=== PATIENT | male | born 1950 | race Caucasian/White ===

== ENCOUNTER 2021-08-01 15:06 | Inpatient (IN) ==
[2021-08-01] MEDS ORDERED: Nitroglycerin 0.4 MG TAB.SUBL SL PRN (15:24)
[2021-08-01] MEDS ORDERED: D5% in Water 1,000 ML IVC PRN (15:41)
[2021-08-01] MEDS ORDERED: Dextrose Gel 15 GM/37.5 ML TUBE PO PRN ×2 (15:41)
[2021-08-01] MEDS ORDERED: *HR* Dextrose 50 % in Water (Syg) 50 ML SYRINGE IVP PRN (15:41)
[2021-08-01] MEDS ORDERED: Insulin DETEMIR 100 UNIT/ML X5UNITS SUBQ SCH (21:00)
[2021-08-01] MEDS ORDERED: Bumetanide 1 MG TABLET PO SCH (21:00)
[2021-08-01] MEDS ORDERED: Insulin DETEMIR 100 UNIT/ML per UNIT SUBQ ONE (21:15)
[2021-08-01] MEDS: Insulin LISPRO 300 UNITS/3 ML VIAL SUBQ SCH (23:50)
[2021-08-01] MEDS: metOLazone 2.5 MG TABLET PO SCH (23:50)
[2021-08-02] MEDS: Insulin DETEMIR 100 UNIT/ML X5UNITS SUBQ SCH ×3 (00:14→20:47)
[2021-08-02] MEDS: Doxycycline 100 MG CAPSULE PO SCH ×3 (00:24→20:47)
[2021-08-02] MEDS: Ranolazine 500 MG TAB.ER.12H PO SCH ×3 (00:26→20:47)
[2021-08-02] MEDS: Insulin LISPRO 300 UNITS/3 ML VIAL SUBQ SCH ×5 (00:27→20:53)
[2021-08-02] MEDS: Sacubitril/Valsartan 97/103 MG 1 TAB TABLET PO SCH ×3 (00:28→20:47)
[2021-08-02 05:33] LABS: Basophils # 0.1 K/mcL (0.0-0.2); Eosinophils # 0.2 K/mcL (0.0-0.6); Eosinophils % 2.3 %; Hematocrit 32.5 % (37.5-50.1); Hemoglobin 10.9 g/dL (12.9-16.9); Immature Granulocytes % 0.7 % (0-4); Lymphocytes # 1.3 K/mcL (0.6-4.6); Lymphocytes % 14.1 %; Mean Corpuscular HGB Conc 33.5 g/dL (31.6-35.5); Mean Corpuscular Hemoglobin 34.1 pg (28.0-33.3); Mean Corpuscular Volume 101.6 fL (83.0-100.0); Mean Platelet Volume 10.6 fL (9.4-12.4); Monocytes # 0.8 K/mcL (0.0-1.3); Monocytes % 8.7 %; Neutrophils # 6.7 K/mcL (1.6-8.9); Platelet Count 243 K/mcL (140-400); Red Cell Distribution Width 13.1 % (11.5-14.5); Segmented Neutrophils % 73.2 %; White Blood Count 9.2 K/mcL (4.3-11.1)
[2021-08-02 05:49] LABS: BUN/Creatinine Ratio 13 (6-26); Blood Urea Nitrogen 15 mg/dL (8-23); Calcium 8.6 mg/dL (8.6-10.3); Carbon Dioxide 23 mEq/L (23-29); Chloride 107 mEq/L (98-107); Glucose 163 mg/dL (70-105); Osmolality,Calculated 288 (280-300); Potassium 3.4 mEq/L (3.5-5.1); Sodium 137 mEq/L (136-145); eGFR For African Americans > 60 (> 60); eGFR For Non-African Americans > 60 (> 60)
[2021-08-02] MEDS: Budesonide/Formoterol 80/4.5 1 PUFF INH IH SCH (07:23)
[2021-08-02] MEDS: Metoprolol XL (24 HR) Succ 25 MG TAB.ER.24H PO SCH (08:48)
[2021-08-02] MEDS: *HR* Amiodarone 200 MG TABLET PO SCH (08:48)
[2021-08-02] MEDS: Multivit/Ca/Min/Fe/FA 1 TAB TABLET PO SCH (08:49)
[2021-08-02] MEDS: Bumetanide 1 MG TABLET PO SCH ×2 (08:49→17:55)
[2021-08-02] MEDS ORDERED: hydrOXYzine pamoate 25 MG CAPSULE PO ONE (21:08)
[2021-08-03 06:39] LABS: Hematocrit 34.1 % (37.5-50.1); Hemoglobin 11.5 g/dL (12.9-16.9); Mean Corpuscular HGB Conc 33.7 g/dL (31.6-35.5); Mean Corpuscular Volume 100.9 fL (83.0-100.0); Mean Platelet Volume 10.5 fL (9.4-12.4); Platelet Count 264 K/mcL (140-400); Red Blood Count 3.38 M/mcL (4.19-5.50); Red Cell Distribution Width 13.2 % (11.5-14.5); White Blood Count 8.3 K/mcL (4.3-11.1)
[2021-08-03 07:05] LABS: BUN/Creatinine Ratio 13 (6-26); Blood Urea Nitrogen 16 mg/dL (8-23); Carbon Dioxide 22 mEq/L (23-29); Chloride 107 mEq/L (98-107); Glucose 95 mg/dL (70-105); Magnesium 1.7 mg/dL (1.6-2.6); Osmolality,Calculated 291 (280-300); Potassium 3.2 mEq/L (3.5-5.1); Sodium 140 mEq/L (136-145); eGFR For African Americans > 60 (> 60); eGFR For Non-African Americans 57 (> 60)
[2021-08-03] MEDS: Budesonide/Formoterol 80/4.5 1 PUFF INH IH SCH (07:40)
[2021-08-03] MEDS: Bumetanide 1 MG TABLET PO SCH ×2 (07:59→17:08)
[2021-08-03] MEDS: Ranolazine 500 MG TAB.ER.12H PO SCH ×2 (07:59→20:51)
[2021-08-03] MEDS: Metoprolol XL (24 HR) Succ 25 MG TAB.ER.24H PO SCH (07:59)
[2021-08-03] MEDS: Multivit/Ca/Min/Fe/FA 1 TAB TABLET PO SCH (07:59)
[2021-08-03] MEDS: Doxycycline 100 MG CAPSULE PO SCH ×2 (07:59→20:51)
[2021-08-03] MEDS: *HR* Amiodarone 200 MG TABLET PO SCH (07:59)
[2021-08-03] MEDS: Sacubitril/Valsartan 97/103 MG 1 TAB TABLET PO SCH ×2 (08:00→20:51)
[2021-08-03] MEDS: Insulin DETEMIR 100 UNIT/ML X5UNITS SUBQ SCH ×2 (08:00→20:54)
[2021-08-03] MEDS: Insulin LISPRO 300 UNITS/3 ML VIAL SUBQ SCH ×4 (09:24→20:54)
[2021-08-03] MEDS: metOLazone 2.5 MG TABLET PO SCH (17:08)
[2021-08-03] MEDS: *HR* OxyCODONE Immed Rel 5 MG TABLET PO PRN ×2 (17:11→22:35)
[2021-08-04] MEDS: Insulin LISPRO 300 UNITS/3 ML VIAL SUBQ SCH ×5 (08:29→21:16)
[2021-08-04] MEDS: Bumetanide 1 MG TABLET PO SCH (08:45)
[2021-08-04] MEDS: *HR* Amiodarone 200 MG TABLET PO SCH (08:45)
[2021-08-04] MEDS: Multivit/Ca/Min/Fe/FA 1 TAB TABLET PO SCH (08:45)
[2021-08-04] MEDS: Sacubitril/Valsartan 97/103 MG 1 TAB TABLET PO SCH ×2 (08:45→21:15)
[2021-08-04] MEDS: Doxycycline 100 MG CAPSULE PO SCH ×2 (08:45→21:16)
[2021-08-04] MEDS: Ranolazine 500 MG TAB.ER.12H PO SCH ×2 (08:45→21:16)
[2021-08-04] MEDS: Metoprolol XL (24 HR) Succ 25 MG TAB.ER.24H PO SCH (08:45)
[2021-08-04] MEDS: *HR* OxyCODONE Immed Rel 5 MG TABLET PO PRN ×2 (08:55→21:16)
[2021-08-04] MEDS: Insulin DETEMIR 100 UNIT/ML X5UNITS SUBQ SCH ×2 (08:55→21:17)
[2021-08-04] MEDS: Budesonide/Formoterol 80/4.5 1 PUFF INH IH SCH ×2 (09:49→11:10)
[2021-08-05] MEDS: Budesonide/Formoterol 80/4.5 1 PUFF INH IH SCH (07:31)
[2021-08-05] MEDS: Insulin LISPRO 300 UNITS/3 ML VIAL SUBQ SCH ×4 (07:49→22:41)
[2021-08-05] MEDS: Metoprolol XL (24 HR) Succ 25 MG TAB.ER.24H PO SCH (09:12)
[2021-08-05] MEDS: Sacubitril/Valsartan 97/103 MG 1 TAB TABLET PO SCH ×2 (09:12→22:53)
[2021-08-05] MEDS: Ranolazine 500 MG TAB.ER.12H PO SCH ×2 (09:12→22:54)
[2021-08-05] MEDS: Doxycycline 100 MG CAPSULE PO SCH ×2 (09:13→22:52)
[2021-08-05] MEDS: *HR* Amiodarone 200 MG TABLET PO SCH (09:13)
[2021-08-05] MEDS: Multivit/Ca/Min/Fe/FA 1 TAB TABLET PO SCH (09:13)
[2021-08-05] MEDS: Bumetanide 1 MG TABLET PO SCH (09:13)
[2021-08-05] MEDS: Insulin DETEMIR 100 UNIT/ML X5UNITS SUBQ SCH ×2 (09:24→22:57)
[2021-08-05] MEDS: metOLazone 2.5 MG TABLET PO SCH (16:20)
[2021-08-05] MEDS: Sennosides 8.6 MG TABLET PO SCH (22:51)
[2021-08-05] MEDS: *HR* OxyCODONE Immed Rel 5 MG TABLET PO PRN (22:53)
[2021-08-06 05:13] LABS: Hematocrit 34.6 % (37.5-50.1); Hemoglobin 11.7 g/dL (12.9-16.9); Mean Corpuscular HGB Conc 33.8 g/dL (31.6-35.5); Mean Corpuscular Hemoglobin 33.6 pg (28.0-33.3); Mean Corpuscular Volume 99.4 fL (83.0-100.0); Mean Platelet Volume 10.4 fL (9.4-12.4); Platelet Count 267 K/mcL (140-400); Red Blood Count 3.48 M/mcL (4.19-5.50); Red Cell Distribution Width 13.1 % (11.5-14.5)
[2021-08-06 05:27] LABS: Alanine Aminotransferase 26 Units/L (7-52); Alkaline Phosphatase 53 Units/L (34-104); Aspartate Amino Transferase 23 Units/L (13-39); BUN/Creatinine Ratio 14 (6-26); Bilirubin,Total 0.6 mg/dL (0.3-1.0); Blood Urea Nitrogen 18 mg/dL (8-23); Calcium 9.1 mg/dL (8.6-10.3); Carbon Dioxide 27 mEq/L (23-29); Chloride 102 mEq/L (98-107); Globulin 3.1 g/dL (2.4-3.5); Glucose 131 mg/dL (70-105); Magnesium 1.5 mg/dL (1.6-2.6); Osmolality,Calculated 286 (280-300); Potassium 3.5 mEq/L (3.5-5.1); Sodium 136 mEq/L (136-145); Total Protein 6.1 g/dL (6.4-8.9); eGFR For African Americans > 60 (> 60); eGFR For Non-African Americans 56 (> 60)
[2021-08-06] MEDS: Budesonide/Formoterol 80/4.5 1 PUFF INH IH SCH (06:33)
[2021-08-06] MEDS: Insulin LISPRO 300 UNITS/3 ML VIAL SUBQ SCH ×4 (07:58→22:56)
[2021-08-06] MEDS: Insulin DETEMIR 100 UNIT/ML X5UNITS SUBQ SCH ×2 (08:03→23:11)
[2021-08-06] MEDS: Multivit/Ca/Min/Fe/FA 1 TAB TABLET PO SCH (08:04)
[2021-08-06] MEDS: Sennosides 8.6 MG TABLET PO SCH ×2 (08:04→23:01)
[2021-08-06] MEDS: *HR* Amiodarone 200 MG TABLET PO SCH (08:04)
[2021-08-06] MEDS: Bumetanide 1 MG TABLET PO SCH (08:04)
[2021-08-06] MEDS: Metoprolol XL (24 HR) Succ 25 MG TAB.ER.24H PO SCH (08:04)
[2021-08-06] MEDS: Sacubitril/Valsartan 97/103 MG 1 TAB TABLET PO SCH ×2 (08:04→23:09)
[2021-08-06] MEDS: Doxycycline 100 MG CAPSULE PO SCH (08:04)
[2021-08-06] MEDS: Ranolazine 500 MG TAB.ER.12H PO SCH ×2 (09:28→11:36)
[2021-08-06] MEDS: Magnesium Oxide 400 MG TABLET PO SCH (23:07)
[2021-08-06] MEDS: *HR* OxyCODONE Immed Rel 5 MG TABLET PO PRN (23:09)
[2021-08-07] MEDS: Ranolazine 500 MG TAB.ER.12H PO SCH ×3 (00:52→21:50)
[2021-08-07] MEDS: *HR* OxyCODONE Immed Rel 5 MG TABLET PO PRN ×2 (03:44→21:51)
[2021-08-07 05:24] LABS: BUN/Creatinine Ratio 16 (6-26); Blood Urea Nitrogen 22 mg/dL (8-23); Calcium 9.1 mg/dL (8.6-10.3); Carbon Dioxide 28 mEq/L (23-29); Chloride 103 mEq/L (98-107); Glucose 157 mg/dL (70-105); Magnesium 1.7 mg/dL (1.6-2.6); Osmolality,Calculated 293 (280-300); Potassium 3.4 mEq/L (3.5-5.1); Sodium 138 mEq/L (136-145); eGFR For African Americans > 60 (> 60); eGFR For Non-African Americans 53 (> 60)
[2021-08-07] MEDS: Budesonide/Formoterol 80/4.5 1 PUFF INH IH SCH (06:44)
[2021-08-07] MEDS: Doxycycline 100 MG CAPSULE PO SCH (07:50)
[2021-08-07] MEDS: Insulin LISPRO 300 UNITS/3 ML VIAL SUBQ SCH ×4 (07:59→21:47)
[2021-08-07] MEDS: Bumetanide 1 MG TABLET PO SCH (09:05)
[2021-08-07] MEDS: Sacubitril/Valsartan 97/103 MG 1 TAB TABLET PO SCH ×2 (09:06→21:51)
[2021-08-07] MEDS: metOLazone 2.5 MG TABLET PO SCH (09:06)
[2021-08-07] MEDS: *HR* Amiodarone 200 MG TABLET PO SCH ×2 (09:07→12:23)
[2021-08-07] MEDS: Metoprolol XL (24 HR) Succ 25 MG TAB.ER.24H PO SCH ×2 (09:07→12:23)
[2021-08-07] MEDS: Sennosides 8.6 MG TABLET PO SCH ×2 (09:48→21:51)
[2021-08-07] MEDS: Multivit/Ca/Min/Fe/FA 1 TAB TABLET PO SCH (09:48)
[2021-08-07] MEDS: Insulin DETEMIR 100 UNIT/ML X5UNITS SUBQ SCH ×2 (09:48→21:51)
[2021-08-07] MEDS: Magnesium Oxide 400 MG TABLET PO SCH ×2 (09:48→21:50)
[2021-08-07] MEDS: Melatonin 3 MG TABLET PO PRN (21:51)
[2021-08-08 04:59] LABS: Hematocrit 35.7 % (37.5-50.1); Hemoglobin 11.8 g/dL (12.9-16.9); Mean Corpuscular HGB Conc 33.1 g/dL (31.6-35.5); Mean Corpuscular Hemoglobin 33.3 pg (28.0-33.3); Mean Corpuscular Volume 100.8 fL (83.0-100.0); Mean Platelet Volume 10.4 fL (9.4-12.4); Platelet Count 268 K/mcL (140-400); Red Blood Count 3.54 M/mcL (4.19-5.50); Red Cell Distribution Width 12.9 % (11.5-14.5); White Blood Count 6.9 K/mcL (4.3-11.1)
[2021-08-08 05:14] LABS: Alanine Aminotransferase 32 Units/L (7-52); Albumin 3.1 g/dL (3.5-5.7); Albumin/Globulin Ratio 1.1 (1.1-2.2); Alkaline Phosphatase 55 Units/L (34-104); Aspartate Amino Transferase 24 Units/L (13-39); BUN/Creatinine Ratio 17 (6-26); Bilirubin,Total 0.5 mg/dL (0.3-1.0); Blood Urea Nitrogen 23 mg/dL (8-23); Calcium 9.1 mg/dL (8.6-10.3); Carbon Dioxide 26 mEq/L (23-29); Chloride 105 mEq/L (98-107); Globulin 2.9 g/dL (2.4-3.5); Glucose 143 mg/dL (70-105); Magnesium 1.7 mg/dL (1.6-2.6); Osmolality,Calculated 290 (280-300); Potassium 3.8 mEq/L (3.5-5.1); Sodium 137 mEq/L (136-145); eGFR For African Americans > 60 (> 60); eGFR For Non-African Americans 51 (> 60)
[2021-08-08] MEDS: Insulin LISPRO 300 UNITS/3 ML VIAL SUBQ SCH ×4 (07:35→20:37)
[2021-08-08] MEDS: Multivit/Ca/Min/Fe/FA 1 TAB TABLET PO SCH (08:31)
[2021-08-08] MEDS: Metoprolol XL (24 HR) Succ 25 MG TAB.ER.24H PO SCH (08:31)
[2021-08-08] MEDS: Bumetanide 1 MG TABLET PO SCH (08:31)
[2021-08-08] MEDS: *HR* Amiodarone 200 MG TABLET PO SCH (08:31)
[2021-08-08] MEDS: Sacubitril/Valsartan 97/103 MG 1 TAB TABLET PO SCH ×2 (08:31→20:48)
[2021-08-08] MEDS: Magnesium Oxide 400 MG TABLET PO SCH ×2 (08:31→20:48)
[2021-08-08] MEDS: Insulin DETEMIR 100 UNIT/ML X5UNITS SUBQ SCH ×2 (08:35→20:47)
[2021-08-08] MEDS: Ranolazine 500 MG TAB.ER.12H PO SCH ×2 (08:35→20:48)
[2021-08-08] MEDS: Sennosides 8.6 MG TABLET PO SCH ×2 (08:35→20:48)
[2021-08-08] MEDS: Budesonide/Formoterol 80/4.5 1 PUFF INH IH SCH (11:21)
[2021-08-08] MEDS: *HR* Rivaroxaban 10 MG TABLET PO SCH (17:10)
[2021-08-08] MEDS: *HR* OxyCODONE Immed Rel 5 MG TABLET PO PRN (20:48)
[2021-08-08] MEDS: Melatonin 3 MG TABLET PO PRN (21:05)
[2021-08-09] MEDS: *HR* OxyCODONE Immed Rel 5 MG TABLET PO PRN ×3 (02:55→23:08)
[2021-08-09 05:03] LABS: Hematocrit 36.9 % (37.5-50.1); Hemoglobin 12.2 g/dL (12.9-16.9); Mean Corpuscular HGB Conc 33.1 g/dL (31.6-35.5); Mean Corpuscular Hemoglobin 33.3 pg (28.0-33.3); Mean Corpuscular Volume 100.8 fL (83.0-100.0); Mean Platelet Volume 10.3 fL (9.4-12.4); Platelet Count 260 K/mcL (140-400); Red Blood Count 3.66 M/mcL (4.19-5.50); White Blood Count 6.8 K/mcL (4.3-11.1)
[2021-08-09 05:19] LABS: Albumin 3.1 g/dL (3.5-5.7); Bilirubin,Total 0.4 mg/dL (0.3-1.0); Calcium 8.9 mg/dL (8.6-10.3); Magnesium 1.9 mg/dL (1.6-2.6); Potassium 3.8 mEq/L (3.5-5.1); Total Protein 6.1 g/dL (6.4-8.9)
[2021-08-09] MEDS: Magnesium Oxide 400 MG TABLET PO SCH ×2 (08:58→19:30)
[2021-08-09] MEDS: Sacubitril/Valsartan 97/103 MG 1 TAB TABLET PO SCH ×2 (08:58→19:30)
[2021-08-09] MEDS: Multivit/Ca/Min/Fe/FA 1 TAB TABLET PO SCH (08:59)
[2021-08-09] MEDS: Ranolazine 500 MG TAB.ER.12H PO SCH ×2 (08:59→19:31)
[2021-08-09] MEDS: *HR* Amiodarone 200 MG TABLET PO SCH (08:59)
[2021-08-09] MEDS: Sennosides 8.6 MG TABLET PO SCH ×2 (08:59→19:30)
[2021-08-09] MEDS: Insulin DETEMIR 100 UNIT/ML X5UNITS SUBQ SCH ×2 (08:59→19:31)
[2021-08-09] MEDS: Metoprolol XL (24 HR) Succ 25 MG TAB.ER.24H PO SCH (08:59)
[2021-08-09] MEDS: Bumetanide 1 MG TABLET PO SCH (08:59)
[2021-08-09] MEDS: Insulin LISPRO 300 UNITS/3 ML VIAL SUBQ SCH ×4 (09:01→19:34)
[2021-08-09] MEDS: Budesonide/Formoterol 80/4.5 1 PUFF INH IH SCH (10:38)
[2021-08-09] MEDS: *HR* Rivaroxaban 10 MG TABLET PO SCH (16:19)
[2021-08-09] MEDS: Melatonin 3 MG TABLET PO PRN (19:30)
[2021-08-10] MEDS: Insulin LISPRO 300 UNITS/3 ML VIAL SUBQ SCH ×4 (07:26→19:55)
[2021-08-10 07:55] LABS: Hematocrit 36.8 % (37.5-50.1); Hemoglobin 12.3 g/dL (12.9-16.9); Mean Corpuscular HGB Conc 33.4 g/dL (31.6-35.5); Mean Corpuscular Hemoglobin 33.7 pg (28.0-33.3); Mean Corpuscular Volume 100.8 fL (83.0-100.0); Mean Platelet Volume 10.4 fL (9.4-12.4); Platelet Count 252 K/mcL (140-400); Red Blood Count 3.65 M/mcL (4.19-5.50); Red Cell Distribution Width 12.9 % (11.5-14.5); White Blood Count 7.2 K/mcL (4.3-11.1)
[2021-08-10 08:07] LABS: BUN/Creatinine Ratio 17 (6-26); Blood Urea Nitrogen 23 mg/dL (8-23); Calcium 8.9 mg/dL (8.6-10.3); Carbon Dioxide 23 mEq/L (23-29); Chloride 109 mEq/L (98-107); Glucose 122 mg/dL (70-105); Magnesium 2.1 mg/dL (1.6-2.6); Osmolality,Calculated 295 (280-300); Potassium 3.9 mEq/L (3.5-5.1); Sodium 140 mEq/L (136-145); eGFR For African Americans > 60 (> 60); eGFR For Non-African Americans 54 (> 60)
[2021-08-10] MEDS: Ranolazine 500 MG TAB.ER.12H PO SCH ×2 (08:48→19:54)
[2021-08-10] MEDS: Magnesium Oxide 400 MG TABLET PO SCH ×2 (08:48→19:54)
[2021-08-10] MEDS: Multivit/Ca/Min/Fe/FA 1 TAB TABLET PO SCH (08:48)
[2021-08-10] MEDS: Metoprolol XL (24 HR) Succ 25 MG TAB.ER.24H PO SCH (08:49)
[2021-08-10] MEDS: Sacubitril/Valsartan 97/103 MG 1 TAB TABLET PO SCH ×2 (08:49→19:54)
[2021-08-10] MEDS: Bumetanide 1 MG TABLET PO SCH (08:49)
[2021-08-10] MEDS: Sennosides 8.6 MG TABLET PO SCH ×2 (08:49→19:54)
[2021-08-10] MEDS: *HR* Amiodarone 200 MG TABLET PO SCH (08:49)
[2021-08-10] MEDS: Insulin DETEMIR 100 UNIT/ML X5UNITS SUBQ SCH ×2 (08:55→19:55)
[2021-08-10] MEDS: Budesonide/Formoterol 80/4.5 1 PUFF INH IH SCH (11:03)
[2021-08-10] MEDS: metOLazone 2.5 MG TABLET PO SCH (15:01)
[2021-08-10] MEDS: *HR* Rivaroxaban 10 MG TABLET PO SCH (17:05)
[2021-08-10] MEDS: *HR* OxyCODONE Immed Rel 5 MG TABLET PO PRN (19:54)
[2021-08-10] MEDS: Melatonin 3 MG TABLET PO PRN (19:54)
[2021-08-11] MEDS: *HR* OxyCODONE Immed Rel 5 MG TABLET PO PRN ×4 (00:31→20:48)
[2021-08-11] MEDS: Budesonide/Formoterol 80/4.5 1 PUFF INH IH SCH (07:19)
[2021-08-11] MEDS: Insulin LISPRO 300 UNITS/3 ML VIAL SUBQ SCH ×4 (07:29→20:49)
[2021-08-11] MEDS: Insulin DETEMIR 100 UNIT/ML X5UNITS SUBQ SCH ×2 (08:40→20:49)
[2021-08-11] MEDS: Metoprolol XL (24 HR) Succ 25 MG TAB.ER.24H PO SCH (08:41)
[2021-08-11] MEDS: Multivit/Ca/Min/Fe/FA 1 TAB TABLET PO SCH (08:41)
[2021-08-11] MEDS: Ranolazine 500 MG TAB.ER.12H PO SCH ×2 (08:41→20:48)
[2021-08-11] MEDS: Sennosides 8.6 MG TABLET PO SCH ×2 (08:42→20:49)
[2021-08-11] MEDS: Bumetanide 1 MG TABLET PO SCH (08:42)
[2021-08-11] MEDS: *HR* Amiodarone 200 MG TABLET PO SCH (08:43)
[2021-08-11] MEDS: Magnesium Oxide 400 MG TABLET PO SCH ×2 (08:43→20:48)
[2021-08-11] MEDS: Sacubitril/Valsartan 97/103 MG 1 TAB TABLET PO SCH ×2 (10:06→20:49)
[2021-08-11] MEDS: *HR* Rivaroxaban 10 MG TABLET PO SCH (16:33)
[2021-08-11] MEDS: Melatonin 3 MG TABLET PO PRN (20:48)
[2021-08-12] MEDS: *HR* OxyCODONE Immed Rel 5 MG TABLET PO PRN ×4 (02:14→22:31)
[2021-08-12] MEDS: Insulin LISPRO 300 UNITS/3 ML VIAL SUBQ SCH ×4 (07:18→20:43)
[2021-08-12] MEDS: Ranolazine 500 MG TAB.ER.12H PO SCH ×2 (08:37→20:42)
[2021-08-12] MEDS: Metoprolol XL (24 HR) Succ 25 MG TAB.ER.24H PO SCH (08:37)
[2021-08-12] MEDS: Multivit/Ca/Min/Fe/FA 1 TAB TABLET PO SCH (08:37)
[2021-08-12] MEDS: *HR* Amiodarone 200 MG TABLET PO SCH (08:37)
[2021-08-12] MEDS: Bumetanide 1 MG TABLET PO SCH (08:38)
[2021-08-12] MEDS: Magnesium Oxide 400 MG TABLET PO SCH ×2 (08:38→20:43)
[2021-08-12] MEDS: Sennosides 8.6 MG TABLET PO SCH ×2 (08:38→20:42)
[2021-08-12] MEDS: Sacubitril/Valsartan 97/103 MG 1 TAB TABLET PO SCH ×2 (08:38→20:43)
[2021-08-12] MEDS: Insulin DETEMIR 100 UNIT/ML X5UNITS SUBQ SCH ×2 (09:03→20:42)
[2021-08-12] MEDS ORDERED: *HR* OxyCODONE Immed Rel 5 MG TABLET PO PRN (10:08)
[2021-08-12] MEDS: Budesonide/Formoterol 80/4.5 1 PUFF INH IH SCH (10:25)
[2021-08-12] MEDS: tiZANidine 4 MG TABLET PO PRN ×2 (10:37→20:43)
[2021-08-12] MEDS: metOLazone 2.5 MG TABLET PO SCH (16:59)
[2021-08-12] MEDS: *HR* Rivaroxaban 10 MG TABLET PO SCH (16:59)
[2021-08-12] MEDS: Melatonin 3 MG TABLET PO PRN (20:42)
[2021-08-13 04:50] LABS: Hematocrit 37.4 % (37.5-50.1); Hemoglobin 12.4 g/dL (12.9-16.9); Mean Corpuscular HGB Conc 33.2 g/dL (31.6-35.5); Mean Corpuscular Hemoglobin 33.4 pg (28.0-33.3); Mean Corpuscular Volume 100.8 fL (83.0-100.0); Mean Platelet Volume 10.6 fL (9.4-12.4); Platelet Count 209 K/mcL (140-400); Red Blood Count 3.71 M/mcL (4.19-5.50); Red Cell Distribution Width 12.8 % (11.5-14.5)
[2021-08-13 05:15] LABS: Alanine Aminotransferase 34 Units/L (7-52); Albumin 3.3 g/dL (3.5-5.7); Albumin/Globulin Ratio 1.1 (1.1-2.2); Alkaline Phosphatase 59 Units/L (34-104); Aspartate Amino Transferase 25 Units/L (13-39); BUN/Creatinine Ratio 17 (6-26); Bilirubin,Total 0.5 mg/dL (0.3-1.0); Blood Urea Nitrogen 21 mg/dL (8-23); Calcium 9.1 mg/dL (8.6-10.3); Carbon Dioxide 26 mEq/L (23-29); Chloride 106 mEq/L (98-107); Globulin 2.9 g/dL (2.4-3.5); Glucose 112 mg/dL (70-105); Magnesium 1.9 mg/dL (1.6-2.6); Osmolality,Calculated 292 (280-300); Potassium 3.9 mEq/L (3.5-5.1); Sodium 139 mEq/L (136-145); Total Protein 6.2 g/dL (6.4-8.9); eGFR For African Americans > 60 (> 60); eGFR For Non-African Americans 57 (> 60)
[2021-08-13] MEDS: tiZANidine 4 MG TABLET PO PRN ×3 (05:38→20:25)
[2021-08-13] MEDS: Insulin LISPRO 300 UNITS/3 ML VIAL SUBQ SCH ×4 (08:06→20:26)
[2021-08-13] MEDS: Insulin DETEMIR 100 UNIT/ML X5UNITS SUBQ SCH ×2 (08:08→20:26)
[2021-08-13] MEDS: Ranolazine 500 MG TAB.ER.12H PO SCH ×2 (08:09→20:25)
[2021-08-13] MEDS: *HR* Amiodarone 200 MG TABLET PO SCH (08:09)
[2021-08-13] MEDS: Multivit/Ca/Min/Fe/FA 1 TAB TABLET PO SCH (08:11)
[2021-08-13] MEDS: Bumetanide 1 MG TABLET PO SCH (08:11)
[2021-08-13] MEDS: Sacubitril/Valsartan 97/103 MG 1 TAB TABLET PO SCH ×2 (08:11→20:25)
[2021-08-13] MEDS: Metoprolol XL (24 HR) Succ 25 MG TAB.ER.24H PO SCH (08:11)
[2021-08-13] MEDS: Sennosides 8.6 MG TABLET PO SCH ×2 (08:11→20:25)
[2021-08-13] MEDS: Magnesium Oxide 400 MG TABLET PO SCH ×2 (08:12→20:25)
[2021-08-13] MEDS: *HR* OxyCODONE Immed Rel 5 MG TABLET PO PRN ×3 (08:13→21:52)
[2021-08-13] MEDS: Budesonide/Formoterol 80/4.5 1 PUFF INH IH SCH (10:02)
[2021-08-13] MEDS: *HR* Rivaroxaban 10 MG TABLET PO SCH (17:02)
[2021-08-13] MEDS: Melatonin 3 MG TABLET PO PRN (20:25)
[2021-08-14] MEDS: tiZANidine 4 MG TABLET PO PRN ×3 (04:09→20:15)
[2021-08-14] MEDS: Insulin LISPRO 300 UNITS/3 ML VIAL SUBQ SCH ×4 (07:32→20:15)
[2021-08-14] MEDS: Metoprolol XL (24 HR) Succ 25 MG TAB.ER.24H PO SCH (08:29)
[2021-08-14] MEDS: *HR* Amiodarone 200 MG TABLET PO SCH (08:30)
[2021-08-14] MEDS: Bumetanide 1 MG TABLET PO SCH (08:31)
[2021-08-14] MEDS: Magnesium Oxide 400 MG TABLET PO SCH ×2 (08:34→20:15)
[2021-08-14] MEDS: Sacubitril/Valsartan 97/103 MG 1 TAB TABLET PO SCH ×2 (08:34→20:14)
[2021-08-14] MEDS: Ranolazine 500 MG TAB.ER.12H PO SCH ×2 (08:34→20:15)
[2021-08-14] MEDS: Multivit/Ca/Min/Fe/FA 1 TAB TABLET PO SCH (08:35)
[2021-08-14] MEDS: *HR* OxyCODONE Immed Rel 5 MG TABLET PO PRN ×2 (08:36→14:29)
[2021-08-14] MEDS: Sennosides 8.6 MG TABLET PO SCH ×2 (08:37→20:15)
[2021-08-14] MEDS: Insulin DETEMIR 100 UNIT/ML X5UNITS SUBQ SCH ×2 (08:38→20:15)
[2021-08-14] MEDS: Budesonide/Formoterol 80/4.5 1 PUFF INH IH SCH (10:06)
[2021-08-14] MEDS: *HR* Rivaroxaban 10 MG TABLET PO SCH (16:47)
[2021-08-14] MEDS: Melatonin 3 MG TABLET PO PRN (20:15)
[2021-08-15 06:55] VITALS: BP 123/77; PULSE 68; TEMP 98.5; O2SAT 94
[2021-08-15] MEDS: Insulin LISPRO 300 UNITS/3 ML VIAL SUBQ SCH (07:21)
[2021-08-15] MEDS: Sacubitril/Valsartan 97/103 MG 1 TAB TABLET PO SCH (07:37)
[2021-08-15] MEDS: *HR* OxyCODONE Immed Rel 5 MG TABLET PO PRN (07:38)
[2021-08-15] MEDS: Metoprolol XL (24 HR) Succ 25 MG TAB.ER.24H PO SCH (07:38)
[2021-08-15] MEDS: *HR* Amiodarone 200 MG TABLET PO SCH (07:38)
[2021-08-15] MEDS: Magnesium Oxide 400 MG TABLET PO SCH (07:38)
[2021-08-15] MEDS: Sennosides 8.6 MG TABLET PO SCH (07:39)
[2021-08-15] MEDS: Ranolazine 500 MG TAB.ER.12H PO SCH (07:39)
[2021-08-15] MEDS: Bumetanide 1 MG TABLET PO SCH (07:40)
[2021-08-15] MEDS: tiZANidine 4 MG TABLET PO PRN (07:40)
[2021-08-15] MEDS: Insulin DETEMIR 100 UNIT/ML X5UNITS SUBQ SCH (08:01)
[2021-08-15] MEDS: Multivit/Ca/Min/Fe/FA 1 TAB TABLET PO SCH (09:35)
[2021-08-15] MEDS: Budesonide/Formoterol 80/4.5 1 PUFF INH IH SCH (10:52)
[2021-08-15 10:54] VITALS: RESP 16
== END 2021-08-15 11:40 | disposition home health service (06) | DRG 871 ==
LOC: INPGRE 20:35
PROVIDERS: ADMIT Family Medicine; ATTEND Family Medicine